=== PATIENT | male | born 1975 | race Caucasian/White ===

== ENCOUNTER 2022-03-19 12:18 | Emergency (ER) | payer BC, OTHER ==
[~2022-03-19] VITALS: Ht 170.2 cm; Wt 100.0 kg
[2022-03-19] MEDS ORDERED: ATOR1TAB19 (12:38)
[2022-03-19] MEDS ORDERED: BUSP5TA (12:38)
[2022-03-19] MEDS ORDERED: LEXA1TAB2 (12:38)
[2022-03-19] MEDS ORDERED: KETOROLAC 30 MG/ML 1ML VIAL IV ONE (14:45)
[2022-03-19] MEDS ORDERED: SUMA50TA2 PO (14:46)
[2022-03-19 15:00] VITALS: BP 123/77
== END 2022-03-19 15:17 | disposition home or self-care (01) ==
LOC: EDBD 12:18 → M ED 12:18
DX: R51.9 Headache, unspecified (principal); F41.9 Anxiety disorder, unspecified; F17.210 Nicotine dependence, cigarettes, uncomplicated; Z79.899 Other long term (current) drug therapy
CPT/HCPCS: 70450; 96374; 99284; J1885